=== PATIENT | female | born 1955 | race Caucasian/White ===

== ENCOUNTER 2017-03-30 11:10 | Emergency (ER) | payer MEDICARE ==
[~2017-03-30] VITALS: Ht 167.6 cm; Wt 65.0 kg
[2017-03-30] MEDS ORDERED: [UNRECOGNIZED DRUG - OTHER] IV ×2 (11:33→11:36)
[2017-03-30] MEDS ORDERED: HEPARIN LOC1 UNIT/ML IV ×2 (11:35→11:36)
[2017-03-30] MEDS ORDERED: COMPAZINE5 MG/TAB PO (11:38)
[2017-03-30] MEDS ORDERED: DULCOLAX10 MG RE (11:38)
[2017-03-30] MEDS ORDERED: HYOSCYAMINE0.125 M1 SL (11:40)
[2017-03-30] MEDS ORDERED: PROCHLORPER IV (11:41)
[2017-03-30] MEDS ORDERED: PROCHLORPER25 MG RE (11:42)
[2017-03-30] MEDS ORDERED: ROBINUL IV (11:43)
[2017-03-30] MEDS ORDERED: HALDOL INJ5 MG/ML IV (11:45)
[2017-03-30] MEDS ORDERED: LORAZEPAM0.5 MG PO (11:46)
[2017-03-30] MEDS ORDERED: HALOPERIDOL2 MG/ML PO (11:47)
[2017-03-30] MEDS ORDERED: ATIVAN2 MG/ML IJ (11:47)
[2017-03-30] MEDS ORDERED: VISTARIL25 MG PO (11:48)
[2017-03-30] MEDS ORDERED: SYMBICORT1 AE1 IN (11:49)
[2017-03-30] MEDS ORDERED: BENADRYL 25MG C25 MG PO (11:49)
[2017-03-30] MEDS ORDERED: DECADRON2 MG PO (11:50)
[2017-03-30] MEDS ORDERED: METHADONE HCL5 MG PO (11:50)
[2017-03-30] MEDS ORDERED: SILVADENE1 % TOP (11:51)
[2017-03-30] MEDS ORDERED: SPIRIVA IN (11:52)
[2017-03-30] MEDS ORDERED: LACTULOSE PO (11:52)
[2017-03-30] MEDS ORDERED: SENNA S1 TAB PO (11:53)
[2017-03-30] MEDS ORDERED: GUAIFENESIN400 MG PO (11:54)
[2017-03-30] MEDS ORDERED: DILAUDID 2MG2 MG/TA1 PO (11:55)
[2017-03-30] MEDS ORDERED: PROVENTIL0.083 % IN (11:55)
[2017-03-30 13:52] VITALS: BP 178/86
== END 2017-03-30 14:15 | disposition hospice, inpatient (51) ==
LOC: ED 11:10
PROC: 2W21X4Z Dressing of Face using Bandage (ICD-10-PCS; principal; 2017-03-30)
DX: T20.24XA Burn of second degree of nose (septum), initial encounter (principal); T20.22XA Burn of second degree of lip(s), initial encounter; T20.16XA Burn of first degree of forehead and cheek, initial encounter; T31.0 Burns involving less than 10% of body surface; X08.8XXA Exposure to other specified smoke, fire and flames, initial encounter; Y93.89 Activity, other specified; Y92.129 Unspecified place in nursing home as the place of occurrence of the external cause